=== PATIENT | female | born 1995 | race Caucasian/White ===

== ENCOUNTER 2024-08-12 18:48 | Emergency (ER) | payer OTHER, SELFPAY ==
[2024-08-12 18:59] VITALS: BP 156/95
[2024-08-12 19:32] LABS: % Basophils 0.5 % (0-2); % Eosinophils 0.9 % (0-6); % Immature Granulocytes 0.3 % (0-0.5); % Lymphocytes 33.4 % (20.5-51.1); % Monocytes 4.3 % (1.7-9.3); % Neutrophils 60.6 % (42.2-75.2); Absolute Basophils 0.1 10^3/uL (0-0.2); Absolute Eosinophils 0.1 10^3/uL (0-0.7); Absolute Monocytes 0.6 10^3/uL (0.1-0.6); Absolute Neutrophils 9.1 10^3/uL (1.4-6.5); Mean Corp Hgb Conc. 34.2 g/dL (33.0-37.0); Mean Corpuscular Hgb 29.7 pg (27.0-31.0); Mean Corpuscular Volume 86.8 fL (81.0-99.0); Mean Platelet Volume 9.3 fL (7.4-10.4); Nucleated Red Blood Cells % 0 %; Platelet Count 397 10^3/uL (130-400); Red Blood Cell Count 4.38 10^6/uL (4.20-5.40); Red Cell Dist. Width 13.2 % (11.5-14.5); White Blood Cell Count 14.9 10^3/uL (4.8-10.8)
[2024-08-12 19:49] LABS: HCG, Serum Qualitative Screen Negative
[2024-08-12 19:54] LABS: ALT (SGPT) 13 U/L (0-35); AST (SGOT) 17 U/L (14-36); Albumin 4.8 g/dl (3.5-5.0); Alkaline Phosphatase 79 U/L (38-126); Blood Urea Nitrogen 13 mg/dl (7-17); Calcium 9.9 mg/dl (8.4-10.2); Carbon Dioxide 24 mmol/L (22-30); Chloride 106 mmol/L (98-107); Glucose 93 mg/dl (70-99); Potassium 4.3 mmol/L (3.5-5.1); Sodium 138 mmol/L (135-145); Total Bilirubin 0.6 mg/dl (0.2-1.3); Total Protein 7.7 g/dl (6.3-8.2); eGFR > 60.00
[2024-08-12 19:59] LABS: Troponin I < 0.012 ng/ml
[2024-08-12 22:28] LABS: Urine Albumin Negative (Neg - Trace); Urine Bilirubin Negative (Negative); Urine Character Clear (Clear); Urine Color Yellow; Urine Glucose Negative (Negative); Urine Ketone Negative (Negative); Urine Leukocyte Negative (Negative); Urine Nitrite Negative (Negative); Urine Occult Blood Negative (Negative); Urine Urobilinogen Negative (Neg - 1+)
[2024-08-12 22:43] VITALS: BP 139/77
[2024-08-12 22:59] LABS: TSH Reflex To Free T4 5.65 uIU/ml (0.47-4.68)
[2024-08-12 23:28] LABS: Free T4 1.03 ng/dl (0.78-2.19)
[2024-08-12 23:32] VITALS: BMI 38.5
[2024-08-12 23:36] VITALS: BP 148/88
--- NOTE | 2024-08-13 23:16 | ED.GENMED ---
History of Present Illness
General
Chief Complaint: Weight Changes
Source: patient
Exam Limitations: none
Time Seen by Provider: 08/12/24 21:50
Nursing documentation reviewed up to this point in time: agreed with
History of Present Illness
History of Present Illness:
Patient to ED with complaint of abdminal bloating and weight gain over the past 2 weeks. States she feels like she is retaining water. Brought to ED by spouse for eval. No prior history of same.
Past History
Past History
ED Past Medical History: None
Review of Systems
Review of Systems
Allergies reviewed?: Yes
All Other Systems: ROS reviewed and negative except as documented in HPI and ROS
Constitutional: Reports weight gain
EENT: Reports no symptoms
Respiratory: Reports no symptoms
Cardiac: Reports no symptoms
ABD/GI: Reports other (abdominal bloating)
: Reports no symptoms
Musculoskeletal: Reports no symptoms
Skin: Reports no symptoms
Neurological: Reports no symptoms
Psychiatric: Reports no symptoms
Phy Exam
General Physical Exam
General Presentation: well appearing and no apparent distress
General age: appears stated age
General Skin: warm and dry
General Habitus: normal
General Mental: alert
Cardiovascular Exam
Cardiovascular Exam: regular rate/rhythm and no edema
Pulmonary Exam
Pulmonary Exam: lungs clear and no respiratory distress
Gastrointestinal Exam
Gastrointestinal Exam: normal bowel sounds, non tender, soft, no organomegaly, no pulsatile mass and non distended
Musculoskeletal Exam
Musculoskeletal Exam: full ROM, no edema and neuro vasc intact
Skin Exam
Skin Exam: normal color, warm/dry and no rash
Psychiatric Exam
Psychiatric Exam: normal mood/affect
Course
Orders/Labs/Results
Orders:
Orders
08/12/24 19:04
Electrocardiogram (*1) Urgent
Reason for Study: Chest Pain
EKG- Treatment ONCE
Test Result ONCE
08/12/24 19:27
Complete Blood Count/With Diff Urgent
Comprehensive Metabolic Panel Urgent
Free T4 Urgent
HCG, Serum Qualitative Screen Urgent
Comment: Notify provider if positive test present
TSH Reflex To Free T4 Urgent
Comment: ADD ON
Troponin I Urgent
08/12/24 21:50
Add On- LAB Urgent
Tests Added?: TSH reflex free T4
08/12/24 22:18
Urinalysis Reflex To Culture Urgent
Date Specimen was Collected: 08/12/24
Time Specimen was Collected: 22:16
Abnormal Lab Results
08/12/24
19:27
WBC 14.9 H 10^3/uL
(4.8-10.8)
Absolute Neuts (auto) 9.1 H 10^3/uL
(1.4-6.5)
Absolute Lymphs (auto) 5.0 H 10^3/uL
(1.2-3.4)
TSH (Reflex) 5.65 H uIU/ml
(0.47-4.68)
08/12/24 19:27
08/12/24 19:27
Vital Signs
Initial and Last Documented VS:
Initial Vital Signs
Temp Pulse Resp BP Pulse Ox
98.2 F 84 16 156/95 100
08/12/24 18:59 08/12/24 18:59 08/12/24 18:59 08/12/24 18:59 08/12/24 18:59
Last Documented Vital Signs
Temp Pulse Resp BP Pulse Ox
98.2 F 67 18 148/88 100
08/12/24 18:59 08/12/24 23:36 08/12/24 22:43 08/12/24 23:36 08/12/24 23:36
*Pulse Oximetry
Patient hypoxic: no
*Critical Care Note
Total Time (30-74mins, 75-104mins- exclusive of procedures): Not Applicable
Update Note
Update Note:
Patient to ED with complaint of abdminal bloating and weight gain x 2 weeks. No concerning findings on physical exam. labs reviewed with her. TSH 5 noted, free T4 normal. Recommend repeating study in 3-6 mos and she is agreeable to this. No
evidence of edema. Will discharge her home tonight and she will follow upwith PCP in AM.
ED Attending Note
-
Portions of this chart may have been created with voice recognition software.� Occasional wrong word or��sound alike� substitutions may have occurred due to the inherent limitations of voice recognition software.
Discharge Plan
Departure
Patient Disposition: Home (Routine Discharge)
Date of Disposition: 08/12/24
Time of Disposition: 23:33
Patient with high blood pressure during this ER visit?: No
Condition: Good
Covid-19: Not Applicable
Discharge Problem:
Weight gain
Instructions: General
Referrals:
Mikel Brown, DO [Family Provider] - Tomorrow
Interventions
Interventions:
*Risk Screen - Suicide Last Done: 08/12/24 18:59
*General Assessment Last Done: 08/12/24 23:32
*Neglect/Abuse Screening Last Done: 08/12/24 18:59
*ED- Fall Risk Assessment Last Done: 08/12/24 18:59
*ED COVID-19 Vaccine History Last Done: 08/12/24 23:32
*Nursing Disposition Last Done: 08/12/24 23:42
Discharge Date and Time
Discharge Date/Time: 08/12/24 23:43
Print Language: N[place]
== END 2024-08-12 23:43 | disposition home or self-care (01) ==
LOC: EMR 18:48
PROVIDERS: Nurse Practitioner; Student in an Organized Health Care Education/Training Program; EMERGENCY PHYSICIAN Student in an Organized Health Care Education/Training Program; FAMILY PHYSICIAN Family Medicine
DX: R63.5 Abnormal weight gain (principal); R14.0 Abdominal distension (gaseous)
CPT/HCPCS: 99284; 80053; 81003; 84439; 84443; 84484; 84703; 85025; 93005